=== PATIENT | male | born 1985 | race Caucasian/White ===

== ENCOUNTER 2021-07-27 21:48 | Observation (INO) ==
[2021-07-27] MEDS ORDERED: SODIUM CHLORIDE 0.9% 1,000 ML IV STA (23:20)
[2021-07-27 23:34] LABS: Basophils % 0.4 % (0.0-0.8); Eosinophils # 0.1 10*3/uL (0.0-0.87); Eosinophils % 1.3 % (0.00-10.9); Hematocrit 40.3 VOL% (42.0-52.0); Hemoglobin 13.8 GM/DL (14.0-18.0); Immature Granulocytes % 0.3 %; Immature Granulocytes Absolute 0.03 #; Lymphocytes # 1.3 10*3/uL (1.4-4.0); Lymphocytes % 11.7 % (21.2-54.2); Mean Corpuscular HGB Conc 34.2 GM/DL (32-36); Mean Platelet Volume 8.6 FL (9.6-12.0); Monocytes % 8.4 % (1.7-12.7); Neutrophils % 77.9 % (38.7-73.9); Platelet Count 234 T/CUMM (130-400); Red Blood Count 4.63 MC/CUMM (3.8-5.5); Red Cell Distribution Width 11.7 % (9.3-17.3); White Blood Count 10.9 T/CUMM (4-12)
[2021-07-27 23:57] LABS: Albumin 3.8 G/DL (3.4-5.0); Bilirubin,Total 0.7 MG/DL (0.20-1.00); Calcium 9.1 MG/DL (8.5-10.1); Osmolality,Calculated 273.8 MOS/KG (273-304); Potassium 3.6 MMOL/L (3.5-5.1); Total Protein 7.7 G/DL (6.4-8.2)
[2021-07-28] MEDS ORDERED: MORPHINE 4 MG/1 ML VIAL IV STA (01:17)
[2021-07-28] MEDS ORDERED: LEVOFLOXACIN INJ 500 MG/100 ML PREMIX IV ONE (01:17)
[2021-07-28] MEDS ORDERED: ONDANSETRON 4 MG/2 ML VIAL IV ONE (01:17)
[2021-07-28] MEDS ORDERED: ONDANSETRON 4 MG/2 ML VIAL IV PRN ×3 (01:18→12:06)
[2021-07-28] MEDS ORDERED: MORPHINE 4 MG/1 ML VIAL ONE (01:22)
[2021-07-28 02:10] LABS: Mucus,Urine Occasional /LPF (Occasional); RBC,Urine 1 /HPF (0-4); Squamous Epithelial Cell,Urine Occasional /HPF (0-10)
[2021-07-28 02:11] LABS: Bilirubin,Urine Negative (Negative); Glucose,Urine (UA) Negative (Negative); Ketones,Urine 15 mg/dL (Negative); Nitrite,Urine Negative (Negative); Protein,Urine Negative; Urine Appearance Clear (Clear); Urine Color Yellow (Yellow)
[2021-07-28 02:12] LABS: Blood, Urine Negative (Negative)
[2021-07-28] MEDS: metroNIDAZOLE INJ 500 MG/100 ML PREMIX IV SCH ×3 (03:01→18:07)
[2021-07-28] MEDS: DEXTROSE 5% NACL 0.45% 1,000 ML IV SCH ×2 (03:01→13:04)
[2021-07-28] MEDS ORDERED: ACETAMINOPHEN 325 MG TABLET PO PRN (03:44)
[2021-07-28] MEDS ORDERED: MORPHINE 4 MG/1 ML VIAL IV PRN (03:44)
[2021-07-28] MEDS ORDERED: DICYCLOMINE 10 MG CAPSULE PO PRN (08:27)
[2021-07-28 08:32] LABS: Basophils % 0.5 % (0.0-0.8); Eosinophils # 0.1 10*3/uL (0.0-0.87); Eosinophils % 1.6 % (0.00-10.9); Hematocrit 38.6 VOL% (42.0-52.0); Hemoglobin 13.2 GM/DL (14.0-18.0); Immature Granulocytes % 0.4 %; Immature Granulocytes Absolute 0.03 #; Lymphocytes # 1.1 10*3/uL (1.4-4.0); Lymphocytes % 13.2 % (21.2-54.2); Mean Corpuscular HGB Conc 34.2 GM/DL (32-36); Mean Corpuscular Volume 86.9 FL (87-102); Mean Platelet Volume 10.1 FL (9.6-12.0); Monocytes % 10.1 % (1.7-12.7); Neutrophils % 74.2 % (38.7-73.9); Platelet Count 178 T/CUMM (130-400); Red Blood Count 4.44 MC/CUMM (3.8-5.5); Red Cell Distribution Width 11.6 % (9.3-17.3)
[2021-07-28] MEDS ORDERED: HYDROmorphone 2 MG/1 ML VIAL IV PRN (08:43)
[2021-07-28] MEDS ORDERED: LIDOCAINE 1%/EPI INJ 20 ML VIAL ONE (08:51)
[2021-07-28] MEDS ORDERED: BUPIVACAINE MPF 0.25% 30 ML VIAL ONE (08:51)
[2021-07-28] MEDS ORDERED: TISSUE ADHESIVE 1 EACH APPLICATOR TOP ONE (08:51)
[2021-07-28] MEDS ORDERED: SCOPOLAMINE 1.5 MG PATCH TRANSDERM ONE (08:57)
[2021-07-28 09:02] LABS: Albumin 3.3 G/DL (3.4-5.0); Bilirubin,Total 0.7 MG/DL (0.20-1.00); Calcium 9.2 MG/DL (8.5-10.1); Potassium 4.3 MMOL/L (3.5-5.1)
[2021-07-28] MEDS ORDERED: propofoL 200 MG/20 ML VIAL IV ONE (09:20)
[2021-07-28] MEDS ORDERED: MIDAZOLAM 2 MG/2 ML VIAL ONE (09:20)
[2021-07-28] MEDS ORDERED: SUCCINYLCHOLINE 200 MG/10 ML VIAL ONE (09:20)
[2021-07-28] MEDS ORDERED: DEXAMETHASONE 4 MG/1 ML VIAL ONE (09:20)
[2021-07-28] MEDS ORDERED: ROCURONIUM 50 MG/5 ML VIAL IV ONE (09:20)
[2021-07-28] MEDS ORDERED: ONDANSETRON 4 MG/2 ML VIAL ONE (09:20)
[2021-07-28] MEDS ORDERED: LIDOCAINE 2% 5 ML VIAL ONE (09:20)
[2021-07-28] MEDS ORDERED: SEVOFLURANE 1 UNIT/15 MINUTE INH ONE ×3 (09:21→10:40)
[2021-07-28] MEDS ORDERED: fentaNYL 100 MCG/2 ML VIAL ONE ×2 (09:21→09:57)
[2021-07-28] MEDS: KETOROLAC 15 MG/1 ML VIAL IV SCH ×4 (09:23→23:23)
[2021-07-28] MEDS: PANTOPRAZOLE 40 MG VIAL IV SCH (09:23)
[2021-07-28] MEDS ORDERED: PHENYLEPHRINE 1 MG/10 ML SYRINGE IV ONE (09:55)
[2021-07-28] MEDS ORDERED: LACTATED RINGERS 1,000 ML IV ONE (10:39)
[2021-07-28] MEDS: HYDROmorphone 2 MG/1 ML VIAL IV PRN ×5 (11:12→13:11)
[2021-07-28] MEDS: LACTATED RINGERS 1,000 ML IV SCH ×2 (12:00→19:25)
[2021-07-29] MEDS ORDERED: LEVOFLOXACIN INJ 500 MG/100 ML PREMIX IV SCH (01:00)
[2021-07-29] MEDS: HYDROmorphone 2 MG/1 ML VIAL IV PRN (01:23)
[2021-07-29] MEDS: metroNIDAZOLE INJ 500 MG/100 ML PREMIX IV SCH (03:22)
[2021-07-29 04:55] LABS: Basophils % 0.3 % (0.0-0.8); Eosinophils # 0.1 10*3/uL (0.0-0.87); Eosinophils % 0.7 % (0.00-10.9); Hematocrit 34.2 VOL% (42.0-52.0); Hemoglobin 11.5 GM/DL (14.0-18.0); Immature Granulocytes % 0.5 %; Immature Granulocytes Absolute 0.05 #; Lymphocytes % 10.9 % (21.2-54.2); Mean Corpuscular HGB Conc 33.6 GM/DL (32-36); Mean Corpuscular Volume 89.3 FL (87-102); Mean Platelet Volume 8.8 FL (9.6-12.0); Monocytes % 8.3 % (1.7-12.7); Neutrophils % 79.3 % (38.7-73.9); Platelet Count 213 T/CUMM (130-400); Red Blood Count 3.83 MC/CUMM (3.8-5.5); Red Cell Distribution Width 11.5 % (9.3-17.3); White Blood Count 9.4 T/CUMM (4-12)
[2021-07-29 05:15] LABS: Calcium 8.4 MG/DL (8.5-10.1); Potassium 4.1 MMOL/L (3.5-5.1)
[2021-07-29] MEDS: LACTATED RINGERS 1,000 ML IV SCH (05:30)
[2021-07-29] MEDS: KETOROLAC 15 MG/1 ML VIAL IV SCH (05:57)
[2021-07-29] MEDS: PANTOPRAZOLE 40 MG VIAL IV SCH (08:20)
[2021-07-29 08:22] VITALS: BP 107/49
== END 2021-07-29 11:40 | disposition home or self-care (01) ==
LOC: N.3E 21:48 → N.ED 21:48 → N.3E 07-28 03:16
PROVIDERS: ADMIT Surgery; ATTEND Surgery

== ENCOUNTER 2021-08-01 13:49 | Inpatient (IN) ==
[2021-08-01] MEDS ORDERED: ALBUTEROL/IPRATROPIUM 3 ML NEB RESP TX PRN (13:50)
[2021-08-01] MEDS ORDERED: ACETAMINOPHEN 325 MG TABLET PO PRN (13:50)
[2021-08-01] MEDS ORDERED: BISACODYL 5 MG TABLET PO PRN (13:50)
[2021-08-01] MEDS ORDERED: HYDROmorphone 2 MG/1 ML VIAL IV PRN (13:50)
[2021-08-01 16:00] LABS: Basophils # 0.1 10*3/uL (0.0-0.2); Basophils % 0.7 % (0.0-0.8); Eosinophils # 0.3 10*3/uL (0.0-0.87); Eosinophils % 3.6 % (0.00-10.9); Hematocrit 46.1 VOL% (42.0-52.0); Hemoglobin 15.4 GM/DL (14.0-18.0); Immature Granulocytes % 0.3 %; Immature Granulocytes Absolute 0.03 #; Lymphocytes # 1.4 10*3/uL (1.4-4.0); Lymphocytes % 15.3 % (21.2-54.2); Mean Corpuscular HGB Conc 33.4 GM/DL (32-36); Mean Corpuscular Volume 87.6 FL (87-102); Mean Platelet Volume 8.6 FL (9.6-12.0); Monocytes % 7.5 % (1.7-12.7); Neutrophils % 72.6 % (38.7-73.9); Platelet Count 382 T/CUMM (130-400); Red Blood Count 5.26 MC/CUMM (3.8-5.5); Red Cell Distribution Width 11.6 % (9.3-17.3); White Blood Count 9.1 T/CUMM (4-12)
[2021-08-01] MEDS: metroNIDAZOLE INJ 500 MG/100 ML PREMIX IV SCH (16:10)
[2021-08-01] MEDS: LACTATED RINGERS 1,000 ML IV SCH (16:10)
[2021-08-01 16:22] LABS: Albumin 3.5 G/DL (3.4-5.0); Bilirubin,Total 0.4 MG/DL (0.20-1.00); Calcium 9.3 MG/DL (8.5-10.1); Osmolality,Calculated 273.7 MOS/KG (273-304); Potassium 4.4 MMOL/L (3.5-5.1); Total Protein 7.4 G/DL (6.4-8.2)
[2021-08-01] MEDS: ONDANSETRON 4 MG/2 ML VIAL IV PRN ×2 (17:30→22:04)
[2021-08-01] MEDS: LEVOFLOXACIN INJ 500 MG/100 ML PREMIX IV SCH (19:00)
[2021-08-01] MEDS: HYDROmorphone 2 MG/1 ML VIAL IV PRN (23:07)
[2021-08-02] MEDS: metroNIDAZOLE INJ 500 MG/100 ML PREMIX IV SCH ×3 (00:42→17:09)
[2021-08-02] MEDS: LACTATED RINGERS 1,000 ML IV SCH ×4 (00:43→22:08)
[2021-08-02] MEDS: ONDANSETRON 4 MG/2 ML VIAL IV PRN ×2 (06:36→22:07)
[2021-08-02] MEDS: HYDROmorphone 2 MG/1 ML VIAL IV PRN (07:31)
[2021-08-02] MEDS: PANTOPRAZOLE 40 MG VIAL IV SCH (08:41)
[2021-08-02] MEDS: LEVOFLOXACIN INJ 500 MG/100 ML PREMIX IV SCH (18:02)
[2021-08-02] MEDS: ZALEPLON 5 MG CAPSULE PO PRN (22:07)
[2021-08-03] MEDS: metroNIDAZOLE INJ 500 MG/100 ML PREMIX IV SCH ×3 (00:56→16:32)
[2021-08-03 05:25] LABS: Basophils # 0.1 10*3/uL (0.0-0.2); Basophils % 0.9 % (0.0-0.8); Eosinophils # 0.3 10*3/uL (0.0-0.87); Eosinophils % 5.2 % (0.00-10.9); Hematocrit 36.4 VOL% (42.0-52.0); Hemoglobin 12.5 GM/DL (14.0-18.0); Immature Granulocytes % 0.2 %; Immature Granulocytes Absolute 0.01 #; Lymphocytes # 1.4 10*3/uL (1.4-4.0); Mean Corpuscular HGB Conc 34.3 GM/DL (32-36); Mean Corpuscular Volume 86.7 FL (87-102); Mean Platelet Volume 8.5 FL (9.6-12.0); Monocytes % 7.7 % (1.7-12.7); Platelet Count 252 T/CUMM (130-400); Red Cell Distribution Width 11.2 % (9.3-17.3); White Blood Count 5.7 T/CUMM (4-12)
[2021-08-03 06:02] LABS: Eosinophils 6 % (0-10); Lymphocytes 31 % (20-55); Microcytosis 1+; Segmented Neutrophils 55 % (50-85); Total Cells Counted 100
[2021-08-03] MEDS: PANTOPRAZOLE 40 MG VIAL IV SCH (08:31)
[2021-08-03] MEDS: LACTATED RINGERS 1,000 ML IV SCH ×3 (08:32→20:24)
[2021-08-03] MEDS: LEVOFLOXACIN INJ 500 MG/100 ML PREMIX IV SCH (18:17)
[2021-08-03] MEDS: ZALEPLON 5 MG CAPSULE PO PRN (21:27)
[2021-08-04] MEDS: metroNIDAZOLE INJ 500 MG/100 ML PREMIX IV SCH ×2 (01:11→09:23)
[2021-08-04] MEDS: LACTATED RINGERS 1,000 ML IV SCH (05:27)
[2021-08-04 07:31] VITALS: BP 126/81
[2021-08-04] MEDS: PANTOPRAZOLE 40 MG VIAL IV SCH (09:28)
== END 2021-08-04 11:14 | disposition home or self-care (01) | DRG 390 ==
LOC: N.3E
PROVIDERS: ADMIT Surgery; ATTEND Surgery